=== PATIENT | male | born 1960 | race African-American/Black ===

== ENCOUNTER 2023-08-19 06:30 | Inpatient (IN) | payer SELFPAY ==
[~2023-08-19] VITALS: Ht 188 cm; Wt 126.6 kg
[2023-08-19] MEDS ORDERED: ONDANSETRON HCL 4MG/2ML INJ IV STA (06:56)
[2023-08-19] MEDS ORDERED: SODIUM CHLORIDE 0.9% 1,000 ML IV ONE (07:00)
[2023-08-19] MEDS ORDERED: KETOROLAC 30MG/ML VIAL IV STA (09:33)
[2023-08-19] MEDS ORDERED: ASPIRIN 325MG EC TABLET PO ONE (09:45)
[2023-08-19 10:08] LABS: HEMATOCRIT. 37.7 % (42.0-52.0); HEMOGLOBIN. 12.5 g/dL (14.0-18.0); MEAN CORPUSCULAR HEMOGLOBIN 29.6 pg (28.0-32.0); MEAN CORPUSCULAR HGB CONC 33.2 g/dL (31.0-37.0); MEAN CORPUSCULAR VOLUME 88.9 fL (80.0-94.0); MEAN PLATELET VOLUME 7.3 fl (7.4-10.4); PLATELET 293 x1000/uL (130-400); RED BLOOD CELL COUNT 4.24 mill/uL (4.7-6.1); RED CELL DISTRIBUTION WIDTH 14.4 % (11.6-14.6); WHITE BLOOD COUNT 16.2 x1000/uL (4.5-11.0)
[2023-08-19 10:22] LABS: DIFFERENTIAL COMMENT 1
[2023-08-19 11:12] LABS: ALANINE AMINOTRANSFERASE 21 IU/L (10-49); ALBUMIN 4.2 g/dL (3.2-4.8); ASPARTATE AMINOTRANSFERASE 23 IU/L (<34); BILIRUBIN TOTAL 0.5 mg/dL (0.1-1.0); CALCIUM 8.9 mg/dL (8.7-10.4); CARBON DIOXIDE 32 mEq/L (21-32); CHLORIDE 102 mEq/L (98-107); CREATININE 0.8 mg/dL (0.6-1.3); GLUCOSE 105 mg/dL (70-105); PROTEIN TOTAL 7.2 g/dL (6.0-8.3); SODIUM 140 mEq/L (136-145); UREA NITROGEN BLOOD 14 mg/dL (9-23)
[2023-08-19 11:13] LABS: TROPONIN I HIGH SENSITIVITY < 4 ng/L (3.0-53)
[2023-08-19] MEDS ORDERED: POTASSIUM CHLORIDE INJ 40 MEQ in DEXT 5% WATER 250 ML IV ONE (12:00)
[2023-08-19] MEDS ORDERED: DIPHENHYDRAMINE 50MG/ML VIAL IV PRN (12:00)
[2023-08-19] MEDS ORDERED: ONDANSETRON HCL 4MG/2ML INJ IV PRN (12:00)
[2023-08-19] MEDS ORDERED: NALOXONE HCL 0.4MG/ML VIAL IV PRN (12:15)
[2023-08-19] MEDS ORDERED: PANTOPRAZOLE SODIUM 40 MG/VIAL IV SCH (12:30)
[2023-08-19 13:17] LABS: TROPONIN I HIGH SENSITIVITY 5 ng/L (3.0-53)
[2023-08-19 13:29] LABS: PLATELET ESTIMATE NORMAL
[2023-08-19] MEDS: MORPHINE SULFATE 4 MG/ML CPJ (NOT FOR IM USE) IV PRN ×2 (13:32→23:35)
[2023-08-19] MEDS: KCL 20MEQ/100ML X 2 FOR TOTAL KCL 40MEQ/200ML IV SCH ×2 (13:44→17:08)
[2023-08-19] MEDS: SODIUM CHLORIDE 0.9% 1,000 ML IV SCH ×2 (13:44→17:08)
[2023-08-19 17:29] VITALS: BP 144/86; RESP 18; TEMP 98.9
[2023-08-19 17:43] VITALS: BP 144/86; PULSE 100; RESP 18; TEMP 98.9
[2023-08-19] MEDS ORDERED: MAGNESIUM/ALUMINUM HYDROXIDE/SIMETHICONE 30ML UDC PO PRN (18:56)
[2023-08-19 20:00] VITALS: BP 136/87; PULSE 96; RESP 18; TEMP 99.3
[2023-08-19] MEDS ORDERED: MAGNESIUM 2 G PREMIX 50 ML IV NR ×2 (20:00→23:30)
[2023-08-20] VITALS: BP 126/66; PULSE 81; RESP 13; TEMP 99.1
[2023-08-20 04:00] VITALS: BP 124/85; PULSE 73; RESP 13; TEMP 98.3
[2023-08-20] MEDS: SODIUM CHLORIDE 0.9% 1,000 ML IV SCH ×2 (05:06→12:30)
[2023-08-20] MEDS ORDERED: PANTOPRAZOLE SODIUM 40 MG/VIAL IV SCH (06:00)
[2023-08-20 07:44] LABS: BASOPHILS % 0.2 % (0.0-2.0); EOSINOPHILS % 0.3 % (0.0-5.0); HEMATOCRIT. 32.7 % (42.0-52.0); LYMPHOCYTES % 16.1 % (20.0-50.0); MEAN CORPUSCULAR HEMOGLOBIN 30.2 pg (28.0-32.0); MEAN CORPUSCULAR HGB CONC 33.5 g/dL (31.0-37.0); MEAN CORPUSCULAR VOLUME 90.3 fL (80.0-94.0); MONOCYTES % 7.9 % (2.0-8.0); NEUTROPHILS % 75.5 % (40.0-76.0); PLATELET 244 x1000/uL (130-400); RED BLOOD CELL COUNT 3.62 mill/uL (4.7-6.1); RED CELL DISTRIBUTION WIDTH 14.7 % (11.6-14.6)
[2023-08-20 08:00] VITALS: BP 122/84; PULSE 62; RESP 15; TEMP 98.6
[2023-08-20 08:23] LABS: ALANINE AMINOTRANSFERASE 13 IU/L (10-49); ALBUMIN 3.5 g/dL (3.2-4.8); ASPARTATE AMINOTRANSFERASE 18 IU/L (<34); BILIRUBIN TOTAL 0.6 mg/dL (0.1-1.0); CALCIUM 8.3 mg/dL (8.7-10.4); CARBON DIOXIDE 30 mEq/L (21-32); CHLORIDE 106 mEq/L (98-107); CREATININE 0.8 mg/dL (0.6-1.3); GLUCOSE 88 mg/dL (70-105); PHOSPHORUS 2.8 mg/dL (2.5-4.9); POTASSIUM 3.5 mEq/L (3.5-5.1); PROTEIN TOTAL 5.5 g/dL (6.0-8.3); SODIUM 141 mEq/L (136-145); UREA NITROGEN BLOOD 10 mg/dL (9-23)
[2023-08-20 12:00] VITALS: BP 134/93; PULSE 68; RESP 12; TEMP 97.9
[2023-08-20 15:40] VITALS: BP 134/93; PULSE 68; TEMP 97.9; O2SAT 100
== END 2023-08-20 16:37 | disposition home or self-care (01) | DRG 249 ==
LOC: ER 06:30 → 3WST 10:19 → EDBEDREQ 10:27
PROVIDERS: ADMIT Internal Medicine; ATTEND Internal Medicine
DX: K52.9 Noninfective gastroenteritis and colitis, unspecified (principal); R65.10 Systemic inflammatory response syndrome (SIRS) of non-infectious origin without acute organ dysfunction; E83.42 Hypomagnesemia; E87.6 Hypokalemia; Z68.35 Body mass index [BMI] 35.0-35.9, adult; I10 Essential (primary) hypertension; J45.909 Unspecified asthma, uncomplicated; Z96.652 Presence of left artificial knee joint; E66.9 Obesity, unspecified; R07.89 Other chest pain
CPT/HCPCS: 36415; 71045; 80053; 83735; 83880; 84100; 84484; 85025; 93005; 99285; C9113; J1885; J2270; J2405; J3475; J3480; J7030